=== PATIENT | male | born 1960 | race Caucasian/White ===

== ENCOUNTER 2017-03-19 12:10 | Emergency (ER) | payer OTHER ==
[~2017-03-19] VITALS: Ht 180.3 cm; Wt 103.4 kg
[~2017-03-19 12:10] MED LIST: AGGRENOX CAPSU1 EACH PO; ASPIRIN EC81 M1 PO; CARISOPRODOL 3350 MG PO; ELIQUIS5 MG PO; HYDROCODON-ACE1 EAC1 PO; IBUPROFEN 600600 M1 PO; KEFLEX500 MG PO; LIPITOR20 MG PO; MEDROL DOSPAK21 TAB PO; MULTIVITAMINS PO; NORCO 5-325 TA1 EACH PO; PERCOCET 5-3251 EACH PO; QUINU10 PD PO; VALIUM5 MG PO; ZETIA10 MG PO
[2017-03-19] MEDS ORDERED: AGGRENOX 25 MG1 EACH PO (12:44)
[2017-03-19 14:27] VITALS: BP 142/94
== END 2017-03-19 14:28 | disposition home or self-care (01) ==
LOC: ER 12:10
DX: R51 Headache (principal); I10 Essential (primary) hypertension; E78.00 Pure hypercholesterolemia, unspecified; I25.2 Old myocardial infarction; Z86.73 Personal history of transient ischemic attack (TIA), and cerebral infarction without residual deficits; Z95.5 Presence of coronary angioplasty implant and graft

== ENCOUNTER → 2019-06-23 | Outpatient (CLI) | payer OTHER ==
[~2019-06-23] MED LIST changes: +AGGRENOX 25 MG1 EACH PO
== END ==
LOC: CAT 15:45
DX: G31.9 Degenerative disease of nervous system, unspecified (principal); G93.89 Other specified disorders of brain; H53.9 Unspecified visual disturbance; R20.0 Anesthesia of skin; R29.898 Other symptoms and signs involving the musculoskeletal system; Z86.73 Personal history of transient ischemic attack (TIA), and cerebral infarction without residual deficits

== ENCOUNTER → 2020-08-23 | Outpatient (CLI) | payer OTHER | LOC: LAB 14:54 | PROVIDERS: ATTEND Nurse Practitioner | DX: Z20.822 Contact with and (suspected) exposure to COVID-19 (principal) ==

== ENCOUNTER → 2020-10-28 | Outpatient (CLI) | payer OTHER | LOC: SJCVCIMAG 10:37 | PROVIDERS: ATTEND Internal Medicine Cardiovascular Disease | DX: R94.31 Abnormal electrocardiogram [ECG] [EKG] (principal); I08.8 Other rheumatic multiple valve diseases; I11.9 Hypertensive heart disease without heart failure; I49.3 Ventricular premature depolarization; I25.10 Atherosclerotic heart disease of native coronary artery without angina pectoris; I25.5 Ischemic cardiomyopathy; R06.00 Dyspnea, unspecified; E78.00 Pure hypercholesterolemia, unspecified; E78.5 Hyperlipidemia, unspecified; Z79.899 Other long term (current) drug therapy; Z79.82 Long term (current) use of aspirin; Z86.73 Personal history of transient ischemic attack (TIA), and cerebral infarction without residual deficits; Z87.891 Personal history of nicotine dependence; Z72.89 Other problems related to lifestyle ==

== ENCOUNTER → 2020-11-09 | Outpatient (CLI) | payer OTHER | LOC: SJCVCIMAG 07:45 | PROVIDERS: ATTEND Internal Medicine Cardiovascular Disease | DX: I49.3 Ventricular premature depolarization (principal); I22.1 Subsequent ST elevation (STEMI) myocardial infarction of inferior wall; I21.19 ST elevation (STEMI) myocardial infarction involving other coronary artery of inferior wall; I25.10 Atherosclerotic heart disease of native coronary artery without angina pectoris; I25.5 Ischemic cardiomyopathy; I10 Essential (primary) hypertension; E78.00 Pure hypercholesterolemia, unspecified; E78.5 Hyperlipidemia, unspecified; Z95.5 Presence of coronary angioplasty implant and graft; Z79.82 Long term (current) use of aspirin; Z79.899 Other long term (current) drug therapy; Z87.891 Personal history of nicotine dependence; Z86.73 Personal history of transient ischemic attack (TIA), and cerebral infarction without residual deficits; Z82.49 Family history of ischemic heart disease and other diseases of the circulatory system ==

== ENCOUNTER → 2021-02-22 | Outpatient (CLI) | payer OTHER ==
[~2021-02-22] VITALS: Ht 180.3 cm; Wt 99.8 kg
[~2021-02-22] MED LIST changes: +ASA81BEC PO; +ATIVAN0.5 M1 PO; +CARVEDILOL12.5 MG PO; +HYDROCHLOROTHIA25 M1 PO; +NORCO7.5 PO; +XARELTO20 MG PO
[2021-02-22 09:26] VITALS: BP 133/86
--- NOTE | 2021-02-22 12:26 | CATHLAB ---
[facility] [place] [address] INVASIVE PROCEDURE REPORT Name: CLOTILDE PATEL Room #: REG [facility]#: [id number] Admission: 02/22/21 Attend Phys: Alfonso Mcneil MD Discharge: Date of : 62 Report #: [id number] THIS REPORT FOR: cc: Sidra Anders DNP, Mary E. DNP Park, Jin S. MD ~ APPROVED REPORT Study performed: 02/22/2021 09:34:51 Patient Details The patient is a 60 year-old male Event Personnel Alfonso Mcneil Adolescent Coordinator, Anamaria Soares RTR Monitor, Ángel Velez RN RN, Bryan Martin RTR Scrub Procedures Performed Art Access - R femoral artery* Left Heart Cath w/or w/o Coronaries [id number] [facility] [address] Initial Mod Sed Same Phys/QHP Gr5y [id number] Mod Sed Same Phys/QHP Ea 786212 Hemostasis with Manual pressure Indication Dyspnea, CardiomyopathyPositive stress test, Chest pain Risk Factors Cerebrovascular Disease, HypercholesterolemiaPhysical Activity, Coronary Artery DiseaseHypertension Previous Procedures/Diagnoses Previous CVAPrevious PCI, Previous [place] Procedure Narrative The Right Groin^ was infiltrated with 1% Lidocaine subcutaneous anesthesia. A PINNACLE 4FR Sheath #[id number] sheath was inserted into the RFA^. Coronary angiography was performed using coronary diagnostic catheters. The right coronary system was accessed and visualized with a JR4 catheter. The left coronary system was accessed and visualized with a JL4 catheter. The left ventricle was accessed and visualized with a PIGTAIL catheter. Left ventriculogram was performed in 30 degree projection. Hemostasis was obtained with manual pressure following sheath removal without any complications. The patient tolerated the procedure well and there were no [facility] [address] [place] [address] INVASIVE PROCEDURE REPORT Name: CLOTILDE PATEL Room #: REG [facility]#: [id number] Admission: 02/22/21 Attend Phys: Alfonso Mcneil MD Discharge: Date of : 62 Report #: [id number] complications associated with the procedure. There was no hematoma. Intraoperative Conscious Sedation Sedation start time: 10:17 Case end Time: 10:54 Fentanyl 50 mcg Versed 1 mg Fluoro Time: 2.60 minutes Dose: DAP 9493.00 cGycm2 1240 mGy Contrast Type and Amount: Omnipaque 95 ml Coronary Angiography The patient's coronary anatomy is right dominant. Diagnostic Cath Left Main The left main artery is a large-caliber vessel, appears angiographically normal. LAD The LAD is a moderate-sized caliber vessel, traverses the anterior wall and wraps around the apex. There is minimal plaquing noted in the midsegment. Diagonal 1 This is a small to moderate-sized caliber vessel, patent with no flow-limiting lesions. Diagonal 2 This is a small to moderate-sized caliber vessel, patent with no flow-limiting lesions. Circumflex Left circumflex artery is a moderate-sized caliber vessel, with mild disease in the midsegment, 20%. OM1 This is a small caliber vessel, patent with no flow-limiting lesions. OM2 This is a small to moderate-sized caliber vessel, patent with no flow-limiting lesions. Right Coronary The RCA is a dominant vessel with a stent in the proximal segment with mild to moderate restenosis, 30 to 40%. R PDA There is a moderate-sized caliber vessel, appears angiographically normal. RPLV There is a moderate-sized caliber vessel, appears angiographically normal. Left Ventriculography The left ventricle is mildly dilated in size with Diminished contractility. The left ventricular ejection fraction is estimated to be 30-35%. There is mild global hypokinesis with severe hypokinesis involving the inferior wall. Hemodynamics The aortic pressure is 145/76 mmHg with a mean of 103 mmHg. [facility] [address] [place] [address] INVASIVE PROCEDURE REPORT Name: CLOTILDE PATEL Room #: REG [facility]#: [id number] Admission: 02/22/21 Attend Phys: Alfonso Mcneil MD Discharge: Date of : 62 Report #: [id number] ventricular pressure is 156/12 mmHg with a mean of mmHg. The left ventricular end diastolic pressure is 36 mmHg. Conclusion 1. There is a patent stent in the RCA with mild to moderate restenosis. 2. There is mild disease in the LAD and left circumflex arteries. 3. 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 The EF is [id number]%. 4. Recommend guideline directed medical therapy. <ELECTRONICALLY SIGNED> By: Alfonso Mcneil MD 02/22/21 1226 1226 1226 Alfonso Mcneil MD /INF
== END | disposition home or self-care (01) ==
LOC: CATH 07:48
PROVIDERS: ATTEND Internal Medicine Cardiovascular Disease
DX: R07.9 Chest pain, unspecified (principal); R94.39 Abnormal result of other cardiovascular function study; I25.10 Atherosclerotic heart disease of native coronary artery without angina pectoris; T82.855A Stenosis of coronary artery stent, initial encounter; I42.9 Cardiomyopathy, unspecified; R06.00 Dyspnea, unspecified; I10 Essential (primary) hypertension; E78.00 Pure hypercholesterolemia, unspecified; I25.2 Old myocardial infarction; K21.9 Gastro-esophageal reflux disease without esophagitis; Z86.73 Personal history of transient ischemic attack (TIA), and cerebral infarction without residual deficits; Z87.891 Personal history of nicotine dependence; Z98.890 Other specified postprocedural states; Z79.899 Other long term (current) drug therapy; Y83.8 Other surgical procedures as the cause of abnormal reaction of the patient, or of later complication, without mention of misadventure at the time of the procedure

== ENCOUNTER → 2021-03-15 | Outpatient (CLI) | payer OTHER | LOC: SJCVC 11:29 | PROVIDERS: ATTEND Internal Medicine Cardiovascular Disease | DX: R94.31 Abnormal electrocardiogram [ECG] [EKG] (principal); I45.10 Unspecified right bundle-branch block; I25.10 Atherosclerotic heart disease of native coronary artery without angina pectoris; I42.9 Cardiomyopathy, unspecified; I10 Essential (primary) hypertension; E78.00 Pure hypercholesterolemia, unspecified; I25.2 Old myocardial infarction; Z95.5 Presence of coronary angioplasty implant and graft; Z79.82 Long term (current) use of aspirin; Z79.899 Other long term (current) drug therapy; Z86.718 Personal history of other venous thrombosis and embolism; Z87.891 Personal history of nicotine dependence; Z82.49 Family history of ischemic heart disease and other diseases of the circulatory system ==